=== PATIENT | female | born 1960 | race Caucasian/White ===

== ENCOUNTER 2017-05-22 07:45 | Inpatient (IN) | payer MEDICAID, OTHER ==
[~2017-05-22] VITALS: Ht 149.9 cm; Wt 67.0 kg
[~2017-05-22 07:45] MED LIST: AUG875 PO
[2017-05-22] MEDS ORDERED: NITROGLYCERIN 2% 1 GM OINT PKT TD STA (08:14)
[2017-05-22] MEDS ORDERED: ASPIRIN 81 MG TAB PO STA (08:14)
[2017-05-22] MEDS ORDERED: NITROGLYCERIN (SL) 0.4 MG TAB SL PRN ×2 (08:30→14:00)
--- NOTE | 2017-05-22 08:36 | RADRPT ---
PROCEDURE: Chest Radiograph. CLINICAL INDICATION: Chest pain TECHNIQUE: Single frontal chest radiograph. COMPARISON: None available FINDINGS: The cardiomediastinal silhouette is within normal limits. No infiltrate or effusion is seen. Th e bones are intact. IMPRESSION: 1. Unremarkable chest radiograph. RPTAT: AA .Antonio Knight MD, MD Date Time Electronically viewed and signed by .Antonio Knight MD, on 05/22/2017 08:35 .B/
[2017-05-22 08:50] LABS: BASOPHILS % 0.3 % (0.0-2.0); EOSINOPHILS # 0.1 10^3/ul (0.0-0.5); EOSINOPHILS % 0.9 % (0.0-7.0); HEMATOCRIT 41.1 % (37.0-47.0); HEMOGLOBIN 14.2 g/dl (12.0-16.0); LYMPHOCYTES # 1.9 10^3/ul (0.8-2.9); LYMPHOCYTES % 20.3 % (15.0-51.0); MEAN CORPUSCULAR HEMOGLOBIN 30.5 pg (29.0-33.0); MEAN CORPUSCULAR HGB CONC 34.5 g/dl (32.0-37.0); MEAN CORPUSCULAR VOLUME 88.2 fl (82.0-101.0); MEAN PLATELET VOLUME 11.5 fl (7.4-10.4); MONOCYTE # 0.7 10^3/ul (0.3-0.9); NEUTROPHIL # 6.8 10^3/ul (1.6-7.5); NEUTROPHILS % 71.2 % (39.0-77.0); PLATELET COUNT 232 10^3/UL (140-415); RED BLOOD COUNT 4.66 10^6/ul (4.20-5.40); RED CELL DISTRIBUTION WIDTH 11.9 % (11.5-14.5); WHITE BLOOD COUNT 9.6 10^3/ul (4.8-10.8)
[2017-05-22 09:09] LABS: ANION GAP 20 (8-16); BLOOD UREA NITROGEN 9 mg/dl (7-20); CALCIUM 9.2 mg/dl (8.4-10.2); CARBON DIOXIDE 27 mmol/L (21-31); CHLORIDE 103 mmol/L (97-110); CREATININE 0.69 mg/dl (0.44-1.00); GLUCOSE 96 mg/dl (70-220); POTASSIUM 3.7 mmol/L (3.5-5.1); SODIUM 146 mmol/L (135-144)
[2017-05-22 09:18] LABS: INR 1.01; PROTIME 13.3 Sec (12.2-14.2)
[2017-05-22 09:19] LABS: PARTIAL THROMBOPLASTIN TIME 33.9 Sec (25.0-35.0)
[2017-05-22 09:25] LABS: TROPONIN-I < 0.012 ng/ml (0.00-0.12)
[2017-05-22] MEDS ORDERED: ONDANSETRON 4 MG INJ IV PRN ×2 (10:30→11:30)
--- NOTE | 2017-05-22 11:16 | ERA ---
ER Documentation Chief Complaint Date/Time DATE: 05/22/17 TIME: 11:13 Chief Complaint 6/10 CP xlast night HPI Patient is a 56-year-old female with no medical problems who presents with chest pain. She said the chest pain started on Saturday as a "pressure" on the left side of her chest. She felt dizziness as well as nausea and vomiting when it started initially. She could not sleep last night. She went to her clinic on Saturday and was given Augmentin for an ear infection and then had an allergic reaction. She went to her primary doctor yesterday who stopped antibiotics but noted that she had high blood pressure and an abnormal EKG and sent to the ER for evaluation. Upon review of old medical records this is the patient's third visit to the ER since 2013. ROS All systems reviewed and are negative except as per history of present illness. Medications Home Meds Discontinued Scripts Amoxicillin-Clavulanate K* (Augmentin*) 875 Mg Tab, 875 MG PO BID for 5 Days, TAB Prov:[employer] [place] [employer] 12/22/14 Allergies Allergies: Coded Allergies: No Known Allergy (Unverified , 05/22/17) PMhx/Soc History of Surgery: Yes (37 yrs ago, Csection and tubal ligation) Anesthesia Reaction: No Hx Neurological Disorder: No Hx Respiratory Disorders: No Hx Cardiac Disorders: No Hx Psychiatric Problems: No Hx Miscellaneous Medical Probl: No Hx Alcohol Use: Yes (socially) Hx Substance Use: No Hx Tobacco Use: No Smoking Status: Never smoker FmHx Family History: No coronary disease Physical Exam Vitals Vital Signs Date Time Temp Pulse Resp B/P Pulse Ox O2 Delivery O2 Flow Rate FiO2 05/22/17 10:38 72 19 121/78 100 Nasal Cannula 2.0 05/22/17 09:00 71 22 109/74 99 Nasal Cannula 2.0 05/22/17 08:15 Nasal Cannula 2 05/22/17 07:48 97.3 83 16 166/82 99 Physical Exam Const: No acute distress Head: Atraumatic Eyes: Normal Conjunctiva ENT: Normal External Ears, Nose and Mouth. Neck: Full range of motion..~ No meningismus. Resp: Clear to auscultation bilaterally Cardio: Regular rate and rhythm, no murmurs Abd: Soft, non tender, non distended. Normal bowel sounds Skin: No petechiae or rashes Back: No midline or flank tenderness Ext: No cyanosis, or edema Neur: Awake and alert Psych: Normal Mood and Affect Result Diagram: 05/22/1782405/22/17824 Results 24 hrs Laboratory Tests Test 05/22/17 08:25 White Blood Count 9.610^3/ul Red Blood Count 4.6610^6/ul Hemoglobin 14.2g/dl Hematocrit 41.1% Mean Corpuscular Volume 88.2fl Mean Corpuscular Hemoglobin 30.5pg Mean Corpuscular Hemoglobin Concent 34.5g/dl Red Cell Distribution Width 11.9% Platelet Count 35615^3/UL Mean Platelet Volume 11.5fl Neutrophils % 71.2% Lymphocytes % 20.3% Monocytes % 7.0% Eosinophils % 0.9% Basophils % 0.3% Nucleated Red Blood Cells % 0.0/100WBC Neutrophils # 6.810^3/ul Lymphocytes # 1.910^3/ul Monocytes # 0.710^3/ul Eosinophils # 0.110^3/ul Basophils # 0.010^3/ul Nucleated Red Blood Cells # 0.010^3/ul Prothrombin Time 13.3Sec Prothrombin Time Ratio 1.0 INR International Normalized Ratio 1.01 Activated Partial Thromboplast Time 33.9Sec Sodium Level 146mmol/L Potassium Level 3.7mmol/L Chloride Level 103mmol/L Carbon Dioxide Level 27mmol/L Anion Gap 20 Blood Urea Nitrogen 9mg/dl Creatinine 0.69mg/dl Glucose Level 96mg/dl Calcium Level 9.2mg/dl Troponin I < 0.012ng/ml Current Medications Medications (Trade) Dose Ordered Sig/Basilio Route PRN Reason Start Time Stop Time Status Last Admin Dose Admin Aspirin (Aspirin) 162 mg ONCE STAT PO 05/22/17 08:14 05/22/17 08:15 DC 05/22/17 08:38 Nitroglycerin (Nitroglycerin 2% Oint) 1 inch ONCE STAT TD 05/22/17 08:14 05/22/17 08:15 DC 05/22/17 08:38 Nitroglycerin (Nitroglycerin (Sl Tab) 0.4 Mg) 1 tab Q5M UP TO 3 DOSES PRN SL CHEST PAIN 05/22/17 08:30 05/22/17 08:38 Ondansetron HCl (Zofran Inj) 4 mg ER BRIDGE PRN IV NAUSEA AND/OR VOMITING 05/22/17 10:30 05/23/17 10:29 Acetaminophen (Tylenol Tab) 650 mg ER BRIDGE PRN PO MILD PAIN/FEVER 05/22/17 10:30 05/23/17 10:29 Procedures/MDM EKG #1 read by me: Rate/Rhythm: Regular rate and rhythm at a rate of 68 Intervals: Normal Impression: No evidence of ischemia or arrhythmia EKG #2 read by me: Rate/Rhythm: Regular rate and rhythm at a rate of 68 Intervals: Normal Impression: No evidence of ischemia or arrhythmia Chest x-ray negative per radiology. Patient is a 56-year-old female with no medical problems who presents with chest pain. I was concerned for possible acute coronary syndrome so the patient had a workup with EKGs, chest x-ray, and laboratory studies. She was given aspirin and nitroglycerin. She will be admitted to the care of Dr. Morton as she has preferred [employer] insurance. She will be admitted to a telemetry bed. Departure Diagnosis: Primary Impression: Chest pain Qualified Code: R07.9 - Chest pain, unspecified type Condition: TATE Erickson MD May 22, 2017 11:15
[2017-05-22] MEDS ORDERED: HYDROCODONE/APAP (5/325) TAB PO PRN (11:30)
[2017-05-22] MEDS ORDERED: hydrALAzine 20 MG INJ IV PRN (11:30)
[2017-05-22] MEDS ORDERED: NACL 0.9% 3 ML SYG IV SCH (11:30)
[2017-05-22] MEDS ORDERED: morphine 2 MG INJ IV PRN (11:30)
[2017-05-22] MEDS ORDERED: DOCUSATE SODIUM 100 MG CAP PO PRN (11:30)
[2017-05-22] MEDS ORDERED: ACETAMINOPHEN 650 MG SUPP PR PRN (11:30)
[2017-05-22 13:39] LABS: CREATINE KINASE 53 IU/L (23-200)
[2017-05-22 13:43] VITALS: Ht 149.9 cm; Wt 67.0 kg
[2017-05-22 13:53] LABS: CK-MB 0.28 ng/ml (0.0-2.4)
[2017-05-22 13:59] LABS: TROPONIN-I < 0.012 ng/ml (0.00-0.12)
[2017-05-22 14:11] VITALS: BP 125/89; PULSE 79; RESP 16
--- NOTE | 2017-05-22 14:12 | HP ---
Date/Time of Note Date/Time of Note DATE: 05/22/17 TIME: 14:11 Assessment/Plan Lines/Catheters IV Catheter Type (from Nrsg): Saline Lock HPI/ROS Admit Date/Time Admit Date/Time May 22, 2017 at 10:14 PMH/Family/Social Social History Smoking Status: Never smoker Exam/Review of Systems Vital Signs Vitals Vital Signs Date Time Temp Pulse Resp B/P Pulse Ox O2 Delivery O2 Flow Rate FiO2 05/22/17 10:38 72 19 121/78 100 Nasal Cannula 2.0 05/22/17 07:48 97.3 Labs Result Diagram: 05/22/1782405/22/17 08 Medications Medications Current Medications Ondansetron HCl (Zofran Inj) 4 mg Q6H PRN IV NAUSEA AND/OR VOMITING; Start at 11:30 Acetaminophen (Tylenol Tab) 650 mg Q6H PRN PO PAIN LEVEL 1-3 OR FEVER; Start at 11:30 Acetaminophen (Tylenol Supp) 650 mg Q6H PRN [place] PAIN LEVEL 1-3 OR FEVER; Start 05/22/17 at 11:30 Acetaminophen/ Hydrocodone Bitart ([place] (5/325)) 1 tab Q6H PRN PO MODERATE PAIN LEVEL 4-6; Start 05/22/17 at 11:30 Morphine Sulfate (morphine) 2 mg Q4H PRN IV SEVERE PAIN LEVEL 7-10; Start 05/22 at 11:30 Docusate Sodium (Colace) 100 mg Q12H PRN PO CONSTIPATION; Start 05/22/17 at 11: 30 Famotidine (Pepcid) 20 mg Q12 PO ; Start 05/22/17 at 21:00 Enoxaparin Sodium (Lovenox) 40 mg DAILY SC ; Start 05/23/17 at 09:00 Aspirin (Aspirin) 81 mg DAILY PO ; Start 05/23/17 at 09:00 Hydralazine HCl (Apresoline) 10 mg Q6H PRN IV SBP>160; Start 05/22/17 at 11:30 Nitroglycerin (Nitroglycerin (Sl Tab) 0.4 Mg) 1 tab Q5M PRN SL ANGINA; Start at 14:00 LORETO CROWDER NP May 22, 2017 14:12
[2017-05-22] MEDS: ACETAMINOPHEN 325 MG TAB PO PRN ×2 (14:31→21:20)
[2017-05-22 14:47] LABS: CREATINE KINASE 46 IU/L (23-200)
[2017-05-22 15:01] LABS: CK-MB 0.32 ng/ml (0.0-2.4)
--- NOTE | 2017-05-22 15:05 | HP ---
Date/Time of Note Date/Time of Note DATE: 05/22/17 TIME: 14:56 Assessment/Plan VTE Prophylaxis VTE Prophylaxis Intervention: LMWH Lines/Catheters [facility]from [facility] Saline Lock Assessment/Plan Assessment/Plan This is a 56-year-old female who came to the emergency room for evaluation of left-sided chest pain/pressure 1. Left-sided chest pain/pressure. Rule out acute coronary syndrome versus orthostatic hypotension versus other. -Admit to telemetry. -Serial troponin, EKG, 2D echocardiogram, aspirin, sublingual nitroglycerin PRN and morphine PRN. -Cardiology consult for stress test consideration. 2. Dizziness with nausea/vomiting, likely vasovagal. Resolved. -We will continue to monitor patient for recurrence of symptoms. -Obtain orthostatic vital signs. DVT prophylaxis: Lovenox PUD prophylaxis: Pepcid Plan: Patient will be admitted to telemetry. Patient will have cardiology evaluation. We will also obtain fasting lipid panel, A1c and TSH level. Patient will be started on diet. She will be kept full code. Rest of the management depend on clinical course, further studies and input from lead consultant. Approximately 60 minutes was spent on this history and physical. Case discussed with Dr. Morton. HPI/ABRAHAM Admit Date/Time Admit Date/Time May 22, 2017 at 10:14 Hx of Present Illness This is a 56-year-old female within no significant past medical history other than laparoscopic appendectomy, who presented to the emergency room with complaints of left-sided chest pain which started this morning. Apparently, patient was feeling dizzy with one episode of vomiting and nausea on Saturday after she got up from bed and she was seen in the clinic and was sent home on oral Augmentin for possible ear infection. However, patient developed allergic reaction to Augmentin. She then went to her primary care physician on 2069 who stopped antibiotics, however she was found to have high blood pressure with abnormal EKG and was asked to go to the emergency room for further evaluation. Patient also complained of feeling dizzy associated with position change. Patient denied any loss of consciousness, headache, numbness, tingling , difficulty breathing, or other discomfort. Patient denied any fever or chills. Patient denied any hematuria, dysuria, hematochezia, hematemesis or melena. Currently she denies any nausea, vomiting, or abdominal pain. In the emergency room, vital signs temperature 97.3, pulse rate 83, respiratory rate 16, blood pressure 166/82 and oxygen saturation 99% on room air. Initial lab works within acceptable range except mildly elevated sodium 146. Initial troponin also negative. Chest x-ray negative for any acute cardiopulmonary disease. Twelve-lead EKG normal sinus rhythm without any acute ST or T-wave changes. Patient was given aspirin and nitroglycerin in the emergency room. A clinical decision was made to admit for further evaluation. ROS A 12 point review of system was assessed and is negative other than what is mentioned in HPI. PMH/Family/Social Past Medical History See HPI Past Surgical History See HPI Social History No history of alcohol, smoking or illicit drug use. Smoking Status: Never smoker Exam/Review of Systems Vital Signs Vitals Vital Signs Date Time Temp Pulse Resp B/P Pulse Ox O2 Delivery O2 Flow Rate FiO2 05/22/17 14:11 98.6 79 16 125/89 100 Room Air 05/22/17 10:38 2.0 Exam Exam General: Well developed,adequately built, not in any acute distress . HEENT: Normocephalic, Atraumatic, No laceration or hematoma; Eyes: PEERL, Conjunctiva clear, Anicteric sclera Neck: Supple without any lymphadenopathy, nontender, no JVD, no carotid bruits, trachea midline, no thyromegaly Cardiac: S1, S2 auscultated, regular rhythm and rate, no mumurs or gallop Pulmonary: Normal respiratory effort. Chest clear to auscultation bilaterally, no adventitious breath sounds GI: Abdomen normal to inspection. Soft, non tender, non- distended, no masses, no rebound tenderness or guarding. Bowel sounds active on all four quadrants Genitourinary: Deferred Extremities: No cyanosis, clubbing, or edema. Pulses [2+] bilaterally. Full ROM on all four extremities. No focal weakness appreciated. Neurologic: Alert to person, place, time, and situation. Affect appropriate, intact sensation. Skin: Clean,dry, and intact. No ecchymosis, no rashes, or lesions Labs Result Diagram: 05/22/1782405/22/17824 Medications Medications Current Medications Ondansetron HCl (Zofran Inj) 4 mg Q6H PRN IV NAUSEA AND/OR VOMITING; Start at 11:30 Acetaminophen (Tylenol Tab) 650 mg Q6H PRN PO PAIN LEVEL 1-3 OR FEVER; Start at 11:30 Acetaminophen (Tylenol Supp) 650 mg Q6H PRN [place] PAIN LEVEL 1-3 OR FEVER; Start 05/22/17 at 11:30 Acetaminophen/ Hydrocodone Bitart ([place] (5/325)) 1 tab Q6H PRN PO MODERATE PAIN LEVEL 4-6; Start 05/22/17 at 11:30 Morphine Sulfate (morphine) 2 mg Q4H PRN IV SEVERE PAIN LEVEL 7-10; Start 05/22 at 11:30 Docusate Sodium (Colace) 100 mg Q12H PRN PO CONSTIPATION; Start 05/22/17 at 11: 30 Famotidine (Pepcid) 20 mg Q12 PO ; Start 05/22/17 at 21:00 Enoxaparin Sodium (Lovenox) 40 mg DAILY SC ; Start 05/23/17 at 09:00 Aspirin (Aspirin) 81 mg DAILY PO ; Start 05/23/17 at 09:00 Hydralazine HCl (Apresoline) 10 mg Q6H PRN IV SBP>160; Start 05/22/17 at 11:30 Nitroglycerin (Nitroglycerin (Sl Tab) 0.4 Mg) 1 tab Q5M PRN SL ANGINA; Start at 14:00 LORETO CROWDER NP May 22, 2017 15:05
[2017-05-22 15:17] LABS: TROPONIN-I < 0.012 ng/ml (0.00-0.12)
--- NOTE | 2017-05-22 15:38 | RADRPT ---
Echocardiogram Report Patient Name: ERWIN YOUNG Gender: Female Date: 1960 Study Date: 22-May-2017 Prison Teacher: Ashley Berrios [facility] Location: [facility] Ref. Physician: LORETO CROWDER Quality: Adequate Procedures: Transthoracic echocardiogram with complete 2D, M-Mode, and doppler examination. Indications: Chest Pain. 2D/M Mode Doppler Measurement Value Normal Ranges Measurement Value Normal Ranges LVIDd 2D 3.6 3.5 - 5.6 cm AV Peak Mikel 1.1 m/sec LVIDs 2D 2.5 2.1 - 4.1 cm AV Peak PG 5.0 mmHg FS 2D 31.3 % LVOT Peak Mikel 0.8 m/sec LVPWd 2D 1.1 0.6 - 1.1 cm LVOT Peak PG 3.0 mmHg IVSd 2D 1.1 0.6 - 1.1 cm MV E Peak Mikel 0.6 m/sec IVS/LVPW 2D 1.0 MV A Peak Mikel 0.9 m/sec AoR Diam 2D 2.8 2.0 - 3.7 cm MV E/A 0.7 LA/Ao 2D 1 0 - 1 MV Decel Time 176 msec EDV 2D 45.9 cm3 MV E/A 0.7 ESV 2D 14.9 cm3 LA Dimen 2D 3.8 2.3 - 4.0 cm Findings Left Ventricle: Normal left ventricular systolic function. Normal left ventricular cavity size. Mild concentric left ventricular hypertrophy. Ejection fraction is visually estimated at 65 %. Tissue Doppler/Mitral Doppler indices are consistent with impaired relaxation (Stage I diastolic dysfunction). Right Ventricle: Normal right ventricular size. Normal right ventricular systolic function. Left Atrium: The left atrium is normal in size. Right Atrium: The right atrium is normal in size. Mitral Valve: Normal appearance of the mitral valve. Mild mitral annular calcification. Trace mitral regurgitation. Aortic Valve: Normal appearance of the aortic valve. No significant aortic stenosis or insufficiency. Tricuspid Valve: Normal appearance of the tricuspid valve. Unable to obtain RVSP due to minimal presence of tricuspid regurgitation. Pulmonic Valve: Normal pulmonic valve appearance. There is trace pulmonic regurgitation. Pericardium: Normal pericardium with no significant pericardial effusion. Aorta: Normal aortic root. IVC: Normal size and normal respiratory collapse consistent with normal right atrial pressure. Conclusions 1.Normal left ventricular systolic function. Normal left ventricular cavity size. Mild concentric left ventricular hypertrophy. Ejection fraction is visually estimated at 65 %. Tissue Doppler/Mitral Doppler indices are consistent with impaired relaxation (Stage I diastolic dysfunction). 2.Normal right ventricular size. Normal right ventricular systolic function. 3.The left atrium is normal in size. 4.The right atrium is normal in size. 5.No significant valvular stenosis or regurgitation seen. 6.Normal pericardium with no significant pericardial effusion. Electronically Signed By: Jose Aly 22-May-2017 15:37:32 -0700 Patient Name: ERWIN YOUNG Study Date: 22-May-2017 [id number]
--- NOTE | 2017-05-22 16:04 | CONS ---
Date/Time of Note Date/Time of Note DATE: 05/22/17 TIME: 16:00 Assessment/Plan Assessment/Plan Additional Assessment/Plan Dizziness, headache and chest discomfort Preserved ejection fraction -Patient with improvement in her symptoms of dizziness and headache with chest pain only with lying on the left side and pushing on the chest wall. She denies exertional chest pain or shortness of breath. First 2 sets of cardiac enzymes are negative, ECG without any significant ischemic abnormalities and echocardiogram within normal limits. Would obtain third set of cardiac enzymes , if remains negative, no further inpatient cardiac workup needed at the current time. Consultation Date/Type/Reason Admit Date/Time May 22, 2017 at 10:14 Type of Consultation: cv Reason for Consultation Chest pain, headache and dizziness Hx of Present Illness This is a 56-year-old female with no significant past medical history who was having symptoms of headache, dizziness and nausea approximately 5 days ago. This occurred with waking up in the morning. She also had symptoms of left- sided chest discomfort. Chest discomfort was worse with leaning on her left side. Patient felt so dizzy that she did vomit. She went to an urgent care that day and was told she had a possible ear infection given antibiotics which later had a reaction to and this was stopped. She saw her primary care physician yesterday for the first time. Patient had an ECG done with possible abnormalities as well as was found to be hypertensive and was told to come to the emergency room. She denies exertional chest pain or shortness of breath. She tells me she is active and works as a laundry housekeeper and taking care of her grandchildren without any exertional chest pain or shortness of breath. Her current chest discomfort exam is exacerbated with leaning on her left side and pushing on her chest. She denies any current dizziness except with looking down and head movements. 12 point review of systems was performed with all pertinent positives and negatives mentioned above and all else is negative Past Medical History Medical History: hypertension Past Surgical History Past Surgical Hx: appendectomy Family History Significant Family History: no pertinent family hx Social History Alcohol Use: none Smoking Status: Never smoker Other Social History Lives at home Exam/Review of Systems Vital Signs Vitals Vital Signs Date Time Temp Pulse Resp B/P Pulse Ox O2 Delivery O2 Flow Rate FiO2 05/22/17 14:11 98.6 79 16 125/89 100 Room Air 05/22/17 10:38 2.0 Exam No apparent distress Constitutional: alert, oriented, well developed Head: normocephalic Neck: supple Respiratory: clear to auscultation, normal air movement Cardiovascular: other (S1-S2 heard), regular rate and rhythm Gastrointestinal: bowel sounds, non-tender, soft Extremities: other (No edema) Results Result Diagram: 05/22/17 0825 05/22/17 0825 Results 24 hrs Laboratory Tests Test 05/22/17 08:25 05/22/17 13:00 05/22/17 13:56 White Blood Count 9.6 # Red Blood Count 4.66 Hemoglobin 14.2 Hematocrit 41.1 Mean Corpuscular Volume 88.2 Mean Corpuscular Hemoglobin 30.5 Mean Corpuscular Hemoglobin Concent 34.5 Red Cell Distribution Width 11.9 Platelet Count 232 Mean Platelet Volume 11.5 H Neutrophils % 71.2 Lymphocytes % 20.3 Monocytes % 7.0 Eosinophils % 0.9 Basophils % 0.3 Nucleated Red Blood Cells % 0.0 Neutrophils # 6.8 Lymphocytes # 1.9 Monocytes # 0.7 Eosinophils # 0.1 Basophils # 0.0 Nucleated Red Blood Cells # 0.0 Prothrombin Time 13.3 Prothrombin Time Ratio 1.0 INR International Normalized Ratio 1.01 Activated Partial Thromboplast Time 33.9 Sodium Level 146 H Potassium Level 3.7 Chloride Level 103 Carbon Dioxide Level 27 Anion Gap 20 H Blood Urea Nitrogen 9 Creatinine 0.69 Glucose Level 96 Calcium Level 9.2 Troponin I < 0.012 < 0.012 < 0.012 Creatine Kinase 53 46 Creatine Kinase Index 0.5 0.7 Creatinine Kinase MB (Mass) 0.28 0.32 Medications Medications Current Medications Ondansetron HCl (Zofran Inj) 4 mg Q6H PRN IV NAUSEA AND/OR VOMITING; Start at 11:30 Acetaminophen (Tylenol Tab) 650 mg Q6H PRN PO PAIN LEVEL 1-3 OR FEVER; Start at 11:30 Acetaminophen (Tylenol Supp) 650 mg Q6H PRN [place] PAIN LEVEL 1-3 OR FEVER; Start 05/22/17 at 11:30 Acetaminophen/ Hydrocodone Bitart ([place] (5/325)) 1 tab Q6H PRN PO MODERATE PAIN LEVEL 4-6; Start 05/22/17 at 11:30 Morphine Sulfate (morphine) 2 mg Q4H PRN IV SEVERE PAIN LEVEL 7-10; Start 05/22 at 11:30 Docusate Sodium (Colace) 100 mg Q12H PRN PO CONSTIPATION; Start 05/22/17 at 11: 30 Famotidine (Pepcid) 20 mg Q12 PO ; Start 05/22/17 at 21:00 Enoxaparin Sodium (Lovenox) 40 mg DAILY SC ; Start 05/23/17 at 09:00 Aspirin (Aspirin) 81 mg DAILY PO ; Start 05/23/17 at 09:00 Hydralazine HCl (Apresoline) 10 mg Q6H PRN IV SBP>160; Start 05/22/17 at 11:30 Nitroglycerin (Nitroglycerin (Sl Tab) 0.4 Mg) 1 tab Q5M PRN SL ANGINA; Start at 14:00 Procedures Procedures ECG demonstrates sinus rhythm, normal QRS duration, nonspecific STT wave abnormalities Jose Aly DO May 22, 2017 16:04
[2017-05-22 16:38] VITALS: PULSE 71
[2017-05-22 16:58] LABS: CREATINE KINASE 41 IU/L (23-200)
[2017-05-22 17:00] VITALS: PULSE 71
[2017-05-22 17:12] LABS: CK-MB 0.28 ng/ml (0.0-2.4)
[2017-05-22 17:13] LABS: TROPONIN-I < 0.012 ng/ml (0.00-0.12)
[2017-05-22 19:34] VITALS: BP 144/76; PULSE 72; RESP 18
[2017-05-22 20:33] VITALS: PULSE 80
[2017-05-22] MEDS: FAMOTIDINE 20 MG TAB PO SCH (21:00)
[2017-05-22 21:03] VITALS: BP 141/81; RESP 20
[2017-05-23] VITALS: PULSE 63
[2017-05-23 00:05] VITALS: BP 158/80; RESP 20
[2017-05-23 04:00] VITALS: PULSE 68
[2017-05-23] MEDS: ACETAMINOPHEN 325 MG TAB PO PRN ×2 (04:52→08:31)
[2017-05-23 07:31] LABS: BASOPHILS % 0.2 % (0.0-2.0); EOSINOPHILS # 0.1 10^3/ul (0.0-0.5); EOSINOPHILS % 0.7 % (0.0-7.0); HEMATOCRIT 40.8 % (37.0-47.0); HEMOGLOBIN 13.9 g/dl (12.0-16.0); LYMPHOCYTES # 2.1 10^3/ul (0.8-2.9); LYMPHOCYTES % 21.5 % (15.0-51.0); MEAN CORPUSCULAR HEMOGLOBIN 29.9 pg (29.0-33.0); MEAN CORPUSCULAR HGB CONC 34.1 g/dl (32.0-37.0); MEAN CORPUSCULAR VOLUME 87.7 fl (82.0-101.0); MEAN PLATELET VOLUME 11.3 fl (7.4-10.4); MONOCYTE # 0.6 10^3/ul (0.3-0.9); NEUTROPHIL # 7.1 10^3/ul (1.6-7.5); NEUTROPHILS % 71.3 % (39.0-77.0); PLATELET COUNT 235 10^3/UL (140-415); RED BLOOD COUNT 4.65 10^6/ul (4.20-5.40); RED CELL DISTRIBUTION WIDTH 12.2 % (11.5-14.5); WHITE BLOOD COUNT 9.9 10^3/ul (4.8-10.8)
[2017-05-23 08:09] VITALS: BP 149/77; RESP 18
[2017-05-23] MEDS: FAMOTIDINE 20 MG TAB PO SCH (08:31)
[2017-05-23 08:39] LABS: CALCIUM 9.1 mg/dl (8.4-10.2); CHOL/HDL RATIO 3.5 RATIO; CREATININE 0.68 mg/dl (0.44-1.00); MAGNESIUM 2.2 mg/dl (1.7-2.5); PHOSPHORUS 4.4 mg/dl (2.5-4.9); POTASSIUM 3.6 mmol/L (3.5-5.1)
[2017-05-23] MEDS ORDERED: ASPIRIN 81 MG TAB PO SCH (09:00)
[2017-05-23] MEDS ORDERED: ENOXAPARIN 40 MG/0.4 ML SYG SC SCH (09:00)
[2017-05-23 09:30] VITALS: PULSE 69
[2017-05-23 09:50] LABS: THYROID STIMULATING HORMONE 0.893 MIU/L (0.465-4.680)
[2017-05-23 11:33] VITALS: BP 135/75; RESP 18
--- NOTE | 2017-05-23 12:25 | PDOCDIS ---
Discharge Instructions CONDITION Patient Condition: Stable HOME CARE INSTRUCTIONS: Diet Instructions: Regular FOLLOW UP/APPOINTMENTS Follow-up Plan 1.Follow up with primary care physician in 1 week If you don't have one please let someone know, we can give you resources that may help you pick one. You may also call your insurance company to assign one to you. Review your medication list with your nurse before leaving and if you need new prescriptions please let your nurse know. I may have made changes to your home medications or given you new prescriptions, please let your primary doctor know as well. Stay compliant with your medications and report any side effects to your PCP or pharmacist. Return to the ER if you have any concerns and cannot reach your doctors or call your insurance company, they usually have a nurse that can help you. LORETO CROWDER NP May 23, 2017 12:25
[2017-05-23] MEDS ORDERED: ASPI81TA3 PO (12:26)
--- NOTE | 2017-05-23 14:53 | DS ---
Date/Time of Note Date/Time of Note DATE: 05/23/17 TIME: 14:49 Discharge Summary Admission/Discharge Info Admit Date/Time May 22, 2017 at 10:14 Discharge Date/Time May 23, 2017 at 13:53 Discharge Diagnosis Dizziness/chest discomfort, likely postural. ACS ruled out. Symptoms resolved. Patient Condition: Stable Consults Dr. Aly, cardiology Procedures 05/22/2017. Chest x-ray. No acute cardiopulmonary disease 05/22/2017. 2D echocardiogram. Normal left ventricular systolic function with EF 65% Hx of Present Illness This is a 56-year-old female within no significant past medical history other than laparoscopic appendectomy, who presented to the emergency room with complaints of left-sided chest pain which started this morning. Apparently, patient was feeling dizzy with one episode of vomiting and nausea on Saturday after she got up from bed and she was seen in the clinic and was sent home on oral Augmentin for possible ear infection. However, patient developed allergic reaction to Augmentin. She then went to her primary care physician on 2069 who stopped antibiotics, however she was found to have high blood pressure with abnormal EKG and was asked to go to the emergency room for further evaluation. Patient also complained of feeling dizzy associated with position change. Patient denied any loss of consciousness, headache, numbness, tingling , difficulty breathing, or other discomfort. Patient denied any fever or chills. Patient denied any hematuria, dysuria, hematochezia, hematemesis or melena. She also denied any nausea, vomiting, or abdominal pain. In the emergency room, vital signs temperature 97.3, pulse rate 83, respiratory rate 16, blood pressure 166/82 and oxygen saturation 99% on room air. Initial lab works within acceptable range except mildly elevated sodium 146. Initial troponin also negative. Chest x-ray negative for any acute cardiopulmonary disease. Twelve-lead EKG normal sinus rhythm without any acute ST or T-wave changes. Patient was given aspirin and nitroglycerin in the emergency room. A clinical decision was made to admit for further evaluation. Hospital Course Patient was started on a diet. She was continued on aspirin for prophylaxis. She was also given DVT prophylaxis and PUD prophylaxis. Serial troponin was negative. There was no EKG changes. 2D echocardiogram with preserved ejection fraction. There was no further episodes of dizziness or chest pain. She was able to tolerate diet and activities well. Patient was seen and evaluated by cardiology. There is no further cardiology inpatient workup indicated per electric organ checker. ACS ruled out and likely causes of symptoms most likely are postural and was resolved. Her labs and vital signs remained stable. At this time, patient is medically stable for discharge. Disposition. Patient will be discharged home with outpatient primary care follow-up. On day of discharge, patient vital signs and labs remain stable. Patient feels back to her baseline status. Condition at time of discharge is stable. Approximately 60 minutes was spent in coordinating the discharge on this patient. Case discussed with Dr. Morton. Home Meds Discontinued Scripts Amoxicillin-Clavulanate K* (Augmentin*) 875 Mg Tab, 875 MG PO BID for 5 Days, TAB Prov:MABLE CUTRIS [employer] FURNACE OPERATOR 12/22/14 Follow-up Plan HOME CARE INSTRUCTIONS: Diet Instructions: Regular FOLLOW UP/APPOINTMENTS Follow-up Plan 1.Follow up with primary care physician in 1 week If you don't have one please let someone know, we can give you resources that may help you pick one. You may also call your insurance company to assign one to you. Review your medication list with your nurse before leaving and if you need new prescriptions please let your nurse know. I may have made changes to your home medications or given you new prescriptions, please let your primary doctor know as well. Stay compliant with your medications and report any side effects to your PCP or pharmacist. Return to the ER if you have any concerns and cannot reach your doctors or call your insurance company, they usually have a nurse that can help you. Primary Care Provider Care Physician No Primary Pending Labs Laboratory Tests Test 05/22/17 16:30 05/23/17 07:14 Creatine Kinase 41IU/L (23-200) Creatine Kinase Index 0.7 Creatinine Kinase MB (Mass) 0.28ng/ml (0.0-2.4) Troponin I < 0.012ng/ml (0.00-0.12) White Blood Count 9.910^3/ul (4.8-10.8) Red Blood Count 4.6510^6/ul (4.20-5.40) Hemoglobin 13.9g/dl (12.0-16.0) Hematocrit 40.8% (37.0-47.0) Mean Corpuscular Volume 87.7fl (82.0-101.0) Mean Corpuscular Hemoglobin 29.9pg (29.0-33.0) Mean Corpuscular Hemoglobin Concent 34.1g/dl (32.0-37.0) Red Cell Distribution Width 12.2% (11.5-14.5) Platelet Count 23271^3/UL (140-415) Mean Platelet Volume 11.3fl (7.4-10.4) Neutrophils % 71.3% (39.0-77.0) Lymphocytes % 21.5% (15.0-51.0) Monocytes % 6.0% (0.0-11.0) Eosinophils % 0.7% (0.0-7.0) Basophils % 0.2% (0.0-2.0) Nucleated Red Blood Cells % 0.0/100WBC (0.0-0.0) Neutrophils # 7.110^3/ul (1.6-7.5) Lymphocytes # 2.110^3/ul (0.8-2.9) Monocytes # 0.610^3/ul (0.3-0.9) Eosinophils # 0.110^3/ul (0.0-0.5) Basophils # 0.010^3/ul (0.0-0.1) Nucleated Red Blood Cells # 0.010^3/ul (0.0-0.0) Sodium Level 144mmol/L (135-144) Potassium Level 3.6mmol/L (3.5-5.1) Chloride Level 102mmol/L (97-110) Carbon Dioxide Level 27mmol/L (21-31) Anion Gap 19 (8-16) Blood Urea Nitrogen 11mg/dl (7-20) Creatinine 0.68mg/dl (0.44-1.00) Glucose Level 99mg/dl (70-220) Hemoglobin A1c 5.5% (0-5.9) Calcium Level 9.1mg/dl (8.4-10.2) Phosphorus Level 4.4mg/dl (2.5-4.9) Magnesium Level 2.2mg/dl (1.7-2.5) Triglycerides Level 143mg/dl (0-149) Cholesterol Level 163mg/dl (100-200) LDL Cholesterol, Calculated 88mg/dl HDL Cholesterol 46mg/dl (37-92) Cholesterol/HDL Ratio 3.5RATIO Thyroid Stimulating Hormone (TSH) 0.893MIU/L (0.465-4.680) LORETO CROWDER V. [employer] FURNACE OPERATOR May 23, 2017 14:53
--- NOTE | 2017-05-24 18:57 | RADRPT ---
Vent Rate: 65 bpm RR Interval: 0 msec IA Interval: 150 msec QRS Duration: 90 msec QT Interval: 428 msec QTC Interval: 445 msec P-R-T [place]: 40 - 12 - 45 degrees Normal sinus rhythm Normal ECG Electronically Signed By: Alvin Bravo [id number]
== END 2017-05-23 13:53 | disposition home or self-care (01) | DRG 313 ==
LOC: E/R 07:45 → MS3 10:14 → MS4 20:24
PROVIDERS: ADMIT Internal Medicine; ATTEND Internal Medicine
DX: R07.9 Chest pain, unspecified (principal); R42 Dizziness and giddiness; R11.2 Nausea with vomiting, unspecified; R51 Headache
CPT/HCPCS: 36415; 71010; 80048; 80061; 82550; 82553; 83036; 83735; 84100; 84443; 84484; 85025; 85610; 85730; 93005; 93306; J1650; J2405

== ENCOUNTER 2019-02-09 11:06 | Emergency (ER) | payer OTHER ==
[~2019-02-09] VITALS: Wt 64.5 kg
[2019-02-09 11:07] VITALS: RESP 18
--- NOTE | 2019-02-09 12:09 | ERD ---
ER Documentation Chief Complaint Chief Complaint nausea abnd vomiting and dizziness since yesterday, no headache or trauma HPI The patient is a 58-year-old female, presenting to the ER because of nausea, vomiting and dizziness for 1 day. She only vomited twice yesterday, mostly mucus, feels as if the room is spinning, had similar symptoms previously, denies fever, chills, nasal congestion, cough, neck pain, chest pain, dyspnea, abdominal pain, dysuria, diarrhea. She does not smoke, drink Past medical history: Hypertension Past surgical history: Appendectomy ROS All systems reviewed and are negative except as per history of present illness. Medications Home Meds Active Scripts Ondansetron (Ondansetron Odt) 4 Mg Tab.rapdis, 4 MG PO Q6H PRN for NAUSEA AND/OR VOMITING, #10 TAB Prov:KARYN NICOLAS MD 02/09/19 Meclizine Hcl* (Antivert*) 12.5 Mg Tab, 25 MG PO Q6H PRN for DIZZINESS, #20 TAB Prov:KARYN NICOLAS MD 02/09/19 Reported Medications Hydrochlorothiazide* (Hydrochlorothiazide*) 25 Mg Tab, 12.5 MG PO DAILY, #30 TAB 02/09/19 Metoprolol Succinate* (Toprol XL*) 50 Mg Tab.er.24h, 50 MG PO DAILY, #30 TAB 02/09/19 Allergies Allergies: Coded Allergies: amoxicillin (Verified Allergy, Severe, 02/09/19) Rash clavulanic acid (Verified Allergy, Severe, 02/09/19) Rash PMhx/Soc History of Surgery: No Anesthesia Reaction: No Hx Neurological Disorder: No Hx Respiratory Disorders: No Hx Cardiac Disorders: Yes (HTN) Hx Psychiatric Problems: No Hx Miscellaneous Medical Probl: No Hx Alcohol Use: No Hx Substance Use: No Hx Tobacco Use: No Physical Exam Vitals Vital Signs Date Temp Pulse Resp B/P (MAP) Pulse Ox O2 O2 Flow FiO2 Time Delivery Rate 02/09/19 79 112/67 97 Room Air 15:15 (82) 02/09/19 97.9 72 18 131/68 99 11:07 (89) Physical Exam Const: No acute distress. Head: Atraumatic. Eyes: Normal Conjunctiva. ENT: Normal External Ears, Nose and Mouth. Bilateral tympanic membranes are within normal limits Neck: Full range of motion. No meningismus. Resp: Clear to auscultation bilaterally. Cardio: Regular rate and rhythm. Abd: Soft, non distended, normal bowel sounds, non tender. Skin: No petechiae or rashes. Back: No midline or flank tenderness. Ext: No cyanosis, or edema. Neur: Awake and alert. No focal deficit Psych: Normal Mood and Affect. Result Diagram: 02/09/19 1229 02/09/19 1229 Results 24 hrs Laboratory Tests Test 02/09/19 12:29 White Blood Count 13.1 10^3/ul Red Blood Count 4.53 10^6/ul Hemoglobin 13.7 g/dl Hematocrit 40.7 % Mean Corpuscular Volume 89.8 fl Mean Corpuscular Hemoglobin 30.2 pg Mean Corpuscular Hemoglobin Concent 33.7 g/dl Red Cell Distribution Width 12.4 % Platelet Count 229 10^3/UL Mean Platelet Volume 11.5 fl Immature Granulocytes % 0.500 % Neutrophils % 82.7 % Lymphocytes % 11.6 % Monocytes % 4.5 % Eosinophils % 0.4 % Basophils % 0.3 % Nucleated Red Blood Cells % 0.0 /100WBC Immature Granulocytes # 0.060 10^3/ul Neutrophils # 10.8 10^3/ul Lymphocytes # 1.5 10^3/ul Monocytes # 0.6 10^3/ul Eosinophils # 0.1 10^3/ul Basophils # 0.0 10^3/ul Nucleated Red Blood Cells # 0.0 10^3/ul Sodium Level 142 mmol/L Potassium Level 3.2 mmol/L Chloride Level 102 mmol/L Carbon Dioxide Level 29 mmol/L Anion Gap 11 Blood Urea Nitrogen 12 mg/dl Creatinine 0.65 mg/dl Est Glomerular Filtrat Rate mL/min > 60 mL/min Glucose Level 148 mg/dl Calcium Level 9.3 mg/dl Current Medications Medications Dose Sig/Basilio Start Time Status Last (Trade) Ordered Route PRN Stop Time Admin Dose Reason Admin Meclizine 25 mg ONCE ONCE 02/09/19 DC 02/09/19 HCl PO 12:30 12:43 (Antivert) 02/09/19 12:31 Ondansetron 4 mg ONCE STAT 02/09/19 DC 02/09/19 HCl (Zofran IV 12:15 12:41 Inj) 02/09/19 12:18 Potassium 40 meq ONCE STAT 02/09/19 DC 02/09/19 Chloride PO 13:46 15:08 (Klor-Con 20) 02/09/19 13:47 Procedures/MDM [place] [id number] Radiology Main Line: [phone] DIAGNOSTIC IMAGING REPORT Patient: ERWIN YOUNG : 1960 Age: 58 Sex: F MR #: [id number] DOS: 02/09/19 1215 Ordering MD: KARYN NICOLAS MD Location: E/R Room/Bed: PROCEDURE: CT Brain without contrast. CLINICAL INDICATION: Headache. TECHNIQUE: A CT of the brain without contrast was performed utilizing axial sections from the skull base through the vertex. One or more the following does reduction techniques were utilized: Automated exposure control, adjustment of the mA/ or kV according to patient's size, or use of iterative reconstruction technique. Total exam CTDIvol is 40 MGy and DLP is 634 mGy-cm. DICOM images are available. COMPARISON: None available. FINDINGS: The ventricles and sulci are age-appropriate. There is no intracranial hemorr orestes, mass effect or midline shift. No abnormal intra-axial or extra-axial fluid collections are seen. The osborne/white matter differentiation is well preserved. There are minimal scattered foci of hypoattenuation in the periventricular, deep, and subcortical white matter, which are nonspecific in etiology but likely reflect chronic small vessel ischemic changes. The visualized paranasal sinus es are essentially clear. IMPRESSION: 1. No acute intracranial hemorrhage, transcortical infarction or mass effect. 2. Minimal chronic small vessel ischemic changes. RPTAT: HH .Tyrese Ortega MD, MD Date Time Electronically viewed and signed by .Tyrese Ortega MD, MD on 02/09/2019 14:38 .N/ CC: KARYN NICOLAS MD [id number] EKG: Read by emergency physician Rate/Rhythm: Normal Sinus Rhythm 72 beats/min QRS, ST, T-waves: No ST elevation, no T inversion, inferior Q's Impression: Abnormal EKG MEDICAL MAKING DECISION: The patient is a 58-year-old female, presenting with acute dizziness of unclear etiology, acute hypokalemia, was treated with potassium chloride 40 mEq p.o. , Antivert 25 mg p.o. for dizziness and Zofran 4 mg IV for nausea with good response, is stable for outpatient follow-up The differential diagnoses considered include but are not limited to central causes such as cerebellar infarct, cerebellar hemorrhage, cerebellar tumor, acoustic neuroma, peripheral causes such as benign positional vertigo, labyrinthitis, medication, Meniere's disease. Departure Diagnosis: Primary Impression: Dizziness Additional Impression: Hypokalemia Condition: Good Comments She was discharged with Antivert and Zofran I discussed the findings with the patient. I advised the patient to follow-up with the primary physician in about 2-3 days, sooner if needed and return if any concern. Disclaimer: Inadvertent spelling and grammatical errors are likely due to EHR/dictation software use and do not reflect on the overall quality of patient care. Also, please note that the electronic time recorded on this note does not necessarily reflect the actual time of the patient encounter. KARYN NICOLAS MD Feb 09, 2019 12:09
[2019-02-09] MEDS ORDERED: ONDANSETRON 4 MG INJ IV STA (12:15)
[2019-02-09] MEDS ORDERED: MECLIZINE 12.5 MG TAB PO ONE (12:30)
[2019-02-09] MEDS ORDERED: METO-319 PO (13:06)
[2019-02-09] MEDS ORDERED: HYDR25TA6 PO (13:06)
[2019-02-09] MEDS ORDERED: POTASSIUM CHLORIDE (SR) 20 MEQ TAB PO STA (13:46)
[2019-02-09] MEDS ORDERED: MECL12.574 PO (15:02)
[2019-02-09] MEDS ORDERED: ONDA4TAB14 PO (15:03)
[2019-02-09 15:15] VITALS: BP 112/67; PULSE 79
== END 2019-02-09 15:19 | disposition home or self-care (01) ==
LOC: E/R 11:06
DX: R42 Dizziness and giddiness (principal); E87.6 Hypokalemia; I10 Essential (primary) hypertension
CPT/HCPCS: 36415; 70450; 80048; 85025; 93005; 96374; J2405; Z7502; Z7610